=== PATIENT | female | born 1990 | race African-American/Black ===

== ENCOUNTER 2019-04-15 15:52 | Emergency (ER) | payer SELFPAY ==
[~2019-04-15] VITALS: Ht 167.6 cm; Wt 127.0 kg
[2019-04-15] MEDS ORDERED: HYDR-3164 PO (16:50)
[2019-04-15] MEDS ORDERED: AMOX500C PO (16:50)
--- NOTE | 2019-04-15 16:50 | PHYS DOC ---
Adult General Chief Complaint Chief Complaint: DENTAL PROBLEM HPI HPI Patient is a 28-year-old female that presents with 3 day history of dental pain. She states left lower molars are very sore. She states it's throbbing. She states she is unable to sleep secondary to pain. She hasn't been able to eat for a day secondary to pain. She has been taking Tylenol and Motrin at home without relief. She denies any facial swelling. She denies any difficulty swallowing. She states there is definite cold intolerance[] Review of Systems Review of Systems Constitutional: Denies fever or chills [] Eyes: Denies change in visual acuity, redness, or eye pain [] HENT: Dental pain[] Respiratory: Denies cough or shortness of breath [] Cardiovascular: No additional information not addressed in HPI [] GI: Denies abdominal pain, nausea, vomiting, bloody stools or diarrhea [] : Denies dysuria or hematuria [] Musculoskeletal: Denies back pain or joint pain [] Integument: Denies rash or skin lesions [] Neurologic: Denies headache, focal weakness or sensory changes [] Endocrine: Denies polyuria or polydipsia [] All other systems were reviewed and found to be within normal limits, except as documented in this note. Physical Exam Physical Exam Constitutional: Well developed, well nourished, mild distress, non-toxic appearance. [] HENT: Left lower molars are very carious the most posterior molar has a crack in the enamel with some surrounding gingival erythema and no obvious abscess[] Eyes: PERRLA, EOMI, conjunctiva normal, no discharge. [] Neck: Normal range of motion, no tenderness, supple, no stridor. [] Cardiovascular:Heart rate regular rhythm, no murmur [] Lungs & Thorax: Bilateral breath sounds clear to auscultation [] Abdomen: Bowel sounds normal, soft, no tenderness, no masses, no pulsatile masses. [] Skin: Warm, dry, no erythema, no rash. [] Back: No tenderness, no CVA tenderness. [] Extremities: No tenderness, no cyanosis, no clubbing, ROM intact, no edema. [] Neurologic: Alert and oriented X 3, normal motor function, normal sensory function, no focal deficits noted. [] Psychologic: Affect normal, judgement normal, mood normal. [] EKG EKG [] Radiology/Procedures Radiology/Procedures [] Course & Med Decision Making Course & Med Decision Making Pertinent Labs and Imaging studies reviewed. (See chart for details) [] Dragon Disclaimer Dragon Disclaimer This electronic medical record was generated, in whole or in part, using a voice recognition dictation system. Departure Departure Impression: Primary Impression: Pain, dental Additional Impression: Pain due to dental caries Disposition: HOME, SELF-CARE Condition: STABLE Referrals: NO PCP (PCP) Patient Instructions: Dental Pain Additional Instructions: He need to follow with a dentist as soon as possible. Scripts Hydrocodone/Apap 5-325 (NORCO 5-325 TABLET) 1 Each Tablet 1 TAB PO PRN Q6HRS PRN for PAIN, #10 TAB 0 Refills Prov: AMY SIMMONS DO 04/15/19 Amoxicillin (AMOXICILLIN) 500 Mg Capsule 1 CAP PO TID for pharyngitis, #30 CAP Prov: AMY SIMMONS DO 04/15/19 Problem Qualifiers AMY SIMMONS DO Apr 15, 2019 16:50
[2019-04-15 17:08] VITALS: BP 195/123
== END 2019-04-15 17:14 | disposition home or self-care (01) ==
LOC: ER 15:52
DX: K02.9 Dental caries, unspecified (principal); K08.89 Other specified disorders of teeth and supporting structures
CPT/HCPCS: 99283

== ENCOUNTER 2019-08-25 15:03 | Emergency (ER) | payer SELFPAY ==
[~2019-08-25] VITALS: Ht 165.1 cm; Wt 117.9 kg
[~2019-08-25 15:03] MED LIST: AMOX500C PO; HYDR-3164 PO
[2019-08-25 15:25] VITALS: BP 208/119
[2019-08-25] MEDS ORDERED: IBUPROFEN 400 MG TABLET. PO ONE (15:45)
--- NOTE | 2019-08-25 15:47 | PHYS DOC ---
Past Medical History Past Medical History: No Pertinent History Past Surgical History: No Surgical History Alcohol Use: None Drug Use: None Adult General Chief Complaint Chief Complaint: FLU SYMPTOM HPI HPI Patient is a 29-year-old female presents for evaluation of subjective fever, malaise, mild sore throat, myalgias, headache. Onset yesterday. No neck/back pain. No photophobia. No reported strep/influenza contacts. No significant cough. Mild diarrhea. No abdominal pain. No vomiting. No dysuria. No other concerns today. Review of Systems Review of Systems Eyes: Denies change in visual acuity, redness, or eye pain [] HENT: 20 swallowing. Respiratory: Denies hemoptysis or shortness of breath [] Cardiovascular: No additional information not addressed in HPI [] GI: Denies abdominal pain, nausea, vomiting, bloody stool : Denies dysuria or hematuria [] Musculoskeletal: Denies back pain or joint pain [] Integument: Denies rash or skin lesions [] Neurologic: Denies, focal weakness or sensory changes [] Endocrine: Denies polyuria or polydipsia [] All other systems were reviewed and found to be within normal limits, except as documented in this note. Current Medications Current Medications Current Medications Medications (Trade) Dose Ordered Sig/Emma Start Time Stop Time Status Last Admin Dose Admin Ibuprofen (Motrin) 800 mg 1X ONCE 08/25/19 15:45 08/25/19 15:46 DC 08/25/19 15:45 800 MG Allergies Allergies Allergies Coded Allergies Type Severity Reaction Last Updated Verified No Known Drug Allergies 08/25/19 No Physical Exam Physical Exam Constitutional: Well developed, well nourished, no acute distress, ill-appearing but nontoxic HENT: Normocephalic, atraumatic, bilateral external ears normal, oropharynx moist, no oral exudates, nose normal. [] Eyes: PERRLA, EOMI, conjunctiva normal, no discharge. [] Neck: Normal range of motion, no tenderness, supple, no stridor. [] Cardiovascular:Heart rate regular rhythm, no murmur [] Lungs & Thorax: Bilateral breath sounds clear to auscultation [] Abdomen: Bowel sounds normal, soft, no tenderness, no masses, no pulsatile masses. [] Skin: Warm, dry, no erythema, no rash. [] Back: No tenderness, no CVA tenderness. [] Extremities: No tenderness, no cyanosis, no clubbing, ROM intact, no edema. [] Neurologic: Alert and oriented X 3, normal motor function, normal sensory funct ion, no focal deficits noted. [] Psychologic: Affect normal, judgement normal, mood normal. [] Current Patient Data Vital Signs Vital Signs Date Time Temp Pulse Resp B/P (MAP) Pulse Ox O2 Delivery O2 Flow Rate FiO2 08/25/19 15:25 101.3 100 18 208/119 (148) 100 Room Air 101.3 Lab Values Laboratory Tests Test 08/25/19 15:22 Influenza Type A Antigen Negative (NEGATIVE) Influenza Type B Antigen Negative (NEGATIVE) EKG EKG [] Radiology/Procedures Radiology/Procedures [] Course & Med Decision Making Course & Med Decision Making Pertinent Labs and Imaging studies reviewed. (See chart for details) In summary patient presents with flulike illness. Exam is benign. Noted to be hypertensive on arrival. Patient states this is common for her when seen in the emergency department. She states that today's diastolic pressure is lower than usual for her while in ER. States she typically runs around 160 systolic at primary doctor's office. They have not discussed antihypertensive. To monitor BP at home and discuss with PCP. No signs of hypertensive crisis/urgency or end -organ damage. Influenza swab negative. Advised may reflect false negative test. No meningismus. No signs SBI. Rec close f/u with PCP. strict return precautions reviewed with patient. to f/u closely and return if worse. Dragon Disclaimer Dragon Disclaimer This electronic medical record was generated, in whole or in part, using a voice recognition dictation system. Departure Departure Impression: Primary Impression: Influenza-like illness Disposition: HOME, SELF-CARE Condition: STABLE Referrals: NO PCP (PCP) Patient Instructions: Form - Excuse from Work, School, or Physical Activity, Viral Syndrome MYLES MIDDLETON APRN Aug 25, 2019 15:47
[2019-08-25 16:33] LABS: INFLUENZA A PATIENT NEGATIVE (NEGATIVE); INFLUENZA B PATIENT NEGATIVE (NEGATIVE)
[2019-08-25] MEDS ORDERED: PROM118S9 PO (16:50)
== END 2019-08-25 16:50 | disposition home or self-care (01) ==
LOC: ER 15:03
DX: J02.9 Acute pharyngitis, unspecified (principal); B34.9 Viral infection, unspecified; R51 Headache; R19.7 Diarrhea, unspecified; M79.10 Myalgia, unspecified site; R50.9 Fever, unspecified; R53.81 Other malaise
CPT/HCPCS: 87804; 99284